=== PATIENT | male | born 1950 | race Caucasian/White ===

== ENCOUNTER 2016-11-30 12:28 | Inpatient (IN) | payer BC ==
[~2016-11-30] VITALS: Ht 177.8 cm; Wt 80.7 kg
[2016-11-30] VITALS (369 sets, daily range): BP systolic 88–118; BP diastolic 58–78; PULSE 102–105; TEMP 97.7–97.9; O2SAT 90–100
[~2016-11-30 12:28] MED LIST: CORTEF 20MG TAB20 MG PO; DEPO-TESTOS100 MG/ML IM; HYDROCORTISONE5 MG; LEVOXYL; TIROSINT150 MCG; ZESTRIL 10MG10 MG PO
[2016-11-30] MEDS ORDERED: LEVOXYL0.137 MG PO (13:10)
[2016-11-30 13:47] LABS: ARTERIAL BLD GAS O2 SATURATION 94.9 % (92-100); ARTERIAL BLD GAS TCO2 CT 12.5; ARTERIAL BLOOD GAS BASE EXCESS -13.9 (-2-2); ARTERIAL BLOOD GAS HCO3 11.7 meq/L (22-26); ARTERIAL BLOOD GAS PO2 81.6 mmHg (80-100); ARTERIAL BLOOD GAS pH 7.25 (7.35-7.45); OXYHEMOGLOBIN 94.1 %
[2016-11-30 13:48] LABS: ALLEN TEST YES; ALLENS TEST RESULT PASS; ATS? YES
[2016-11-30 14:21] LABS: BASO # 0.1 (0.0-0.2); BASO % 0.4 % (0.0-2.0); EOS # 0.2 (0.0-0.7); GRAN # 12.5 (1.4-6.5); GRAN % 77.5 % (42.2-75.2); HEMATOCRIT 40.1 % (42.0-52.0); HEMOGLOBIN 13.6 g/dl (13.5-18.0); LYMPH # 1.5 (1.2-3.4); LYMPH % 9.6 % (20.0-51.0); MEAN CELL VOLUME 90 fl (80.0-100.0); MEAN CORPUSCULAR HEMOGLOBIN 30 pg (27.0-31.0); MEAN CORPUSCULAR HGB CONC 34 g/dl (33.0-37.0); MEAN PLATELET VOLUME 9.7 fl (7.4-10.4); MONO # 1.8 (0.1-0.6); MONO % 10.9 % (1.7-9.3); PLATELET COUNT 286 K/mm3 (130-400); RED BLOOD COUNT 4.48 M/mm3 (4.20-5.60); REDCELL DISTRIBUTION WIDTH-CV 13.8 % (11.5-14.5); WHITE BLOOD COUNT 16.1 K/mm3 (4.8-10.8)
[2016-11-30 14:44] LABS: ADJUSTED CALCIUM 7.9 mg/dL (8.4-10.2); BILIRUBIN,TOTAL 1.9 mg/dL (0.0-1.0); CALCIUM 7.1 mg/dL (8.4-10.2); POTASSIUM 5.4 mmol/L (3.4-5.0)
[2016-11-30 14:49] LABS: CREATININE, serum 6.54 mg/dL (0.66-1.25)
[2016-11-30 20:30] LABS: HEMATOCRIT 37.4 % (42.0-52.0); HEMOGLOBIN 12.4 g/dl (13.5-18.0)
[2016-11-30 20:42] LABS: ANION GAP 19 mmol/L (7-16); BLOOD UREA NITROGEN 94 mg/dL (9-20); CALCIUM 6.8 mg/dL (8.4-10.2); CHLORIDE 108 mmol/L (98-107); GLUCOSE 83 mg/dL (74-106); POTASSIUM 4.9 mmol/L (3.4-5.0); SODIUM 140 mmol/L (137-145)
[2016-11-30 20:57] LABS: CREATININE, serum 6.21 mg/dL (0.66-1.25)
[2016-11-30 20:58] LABS: CARBON DIOXIDE 13 mmol/L (22-30); TROPONIN-I 0.198 ng/mL (0.000-0.034)
[2016-11-30 21:17] LABS: THYROID STIMULATING HORMONE < 0.015 uIU/mL (0.465-4.680)
[2016-11-30 22:07] LABS: PH 5 (5-8); SQUAMOUS EPITHELIAL 0-2 /hpf; URINE APPEARANCE Cloudy; URINE BACTERIA Rare /hpf; URINE BILIRUBIN Negative (NEGATIVE); URINE BLOOD 3+ (NEGATIVE); URINE COLOR Yellow; URINE GLUCOSE Negative (NEGATIVE); URINE KETONE Trace (NEGATIVE); URINE UROBILINOGEN Negative (NEGATIVE); URINE WBC 0-2 /hpf
[2016-11-30 23:22] LABS: MEAN CELL VOLUME 87 fl (80.0-100.0); MEAN CORPUSCULAR HGB CONC 35 g/dl (33.0-37.0); MEAN PLATELET VOLUME 9.9 fl (7.4-10.4); PLATELET COUNT 218 K/mm3 (130-400); RED BLOOD COUNT 3.76 M/mm3 (4.20-5.60); REDCELL DISTRIBUTION WIDTH-CV 13.7 % (11.5-14.5); WHITE BLOOD COUNT 12.6 K/mm3 (4.8-10.8)
[2016-11-30 23:30] LABS: ADD PATHOLOGY DIFF REVIEW NO; HEMATOCRIT 32.7 % (42.0-52.0); HEMOGLOBIN 11.5 g/dl (13.5-18.0); MEAN CORPUSCULAR HEMOGLOBIN 31 pg (27.0-31.0)
[2016-11-30 23:59] LABS: BAND 57 % (0-10); EOSINOPHIL 1 % (0-4); NEUTROPHILS 33 % (42.0-75.2); TOTAL CELLS COUNTED 100
[2016-12-01] VITALS (1297 sets, daily range): BP systolic 102–138; BP diastolic 56–77; PULSE 73–89; TEMP 97–98; O2SAT 78–100
[2016-12-01 02:04] LABS: HEMOGLOBIN 12.4 g/dl (13.5-18.0)
[2016-12-01 02:07] LABS: HEMATOCRIT 35.9 % (42.0-52.0)
[2016-12-01 02:15] LABS: CALCIUM 6.5 mg/dL (8.4-10.2); POTASSIUM 4.5 mmol/L (3.4-5.0)
[2016-12-01 02:27] LABS: CREATININE, serum 4.86 mg/dL (0.66-1.25)
[2016-12-01 05:35] LABS: MEAN CELL VOLUME 89 fl (80.0-100.0); MEAN CORPUSCULAR HEMOGLOBIN 30 pg (27.0-31.0); MEAN CORPUSCULAR HGB CONC 34 g/dl (33.0-37.0); MEAN PLATELET VOLUME 9.9 fl (7.4-10.4); PLATELET COUNT 225 K/mm3 (130-400); RED BLOOD COUNT 3.97 M/mm3 (4.20-5.60); REDCELL DISTRIBUTION WIDTH-CV 13.9 % (11.5-14.5); WHITE BLOOD COUNT 15.6 K/mm3 (4.8-10.8)
[2016-12-01 05:36] LABS: HEMATOCRIT 35.5 % (42.0-52.0)
[2016-12-01 05:37] LABS: ADD PATHOLOGY DIFF REVIEW NO
[2016-12-01 05:45] LABS: ALBUMIN 2.6 gm/dL (3.5-5.0); CALCIUM 6.7 mg/dL (8.4-10.2); PHOSPHOROUS 3.7 mg/dL (2.5-4.5); POTASSIUM 4.2 mmol/L (3.4-5.0)
[2016-12-01 05:50] LABS: BAND 57 % (0-10); NEUTROPHILS 34 % (42.0-75.2); TOTAL CELLS COUNTED 100
[2016-12-01 06:00] LABS: CREATININE, serum 4.55 mg/dL (0.66-1.25)
[2016-12-01 07:58] LABS: CREATININE, serum 4.55 mg/dL (0.66-1.25); FRACTIONAL EXCRETION OF NA+ 5.2 %
[2016-12-01 13:50] LABS: HEMATOCRIT 34.2 % (42.0-52.0); HEMOGLOBIN 11.9 g/dl (13.5-18.0)
[2016-12-01 14:05] LABS: CALCIUM 6.9 mg/dL (8.4-10.2); CREATININE, serum 3.8 mg/dL (0.66-1.25); POTASSIUM 3.5 mmol/L (3.4-5.0)
[2016-12-01] MEDS ORDERED: PRINIVIL10 MG PO (16:29)
[2016-12-01 16:55] LABS: MAGNESIUM 1.8 mg/dL (1.6-2.3)
[2016-12-01 19:49] LABS: HEMATOCRIT 34.9 % (42.0-52.0); HEMOGLOBIN 12.2 g/dl (13.5-18.0)
[2016-12-01 20:09] LABS: CALCIUM 7.1 mg/dL (8.4-10.2); CREATININE, serum 3.51 mg/dL (0.66-1.25); POTASSIUM 3.4 mmol/L (3.4-5.0)
[2016-12-02] VITALS (567 sets, daily range): BP systolic 115–141; BP diastolic 58–77; PULSE 65–92; TEMP 97–98.3; O2SAT 88–100
[2016-12-02 02:07] LABS: CREATININE, serum 3.09 mg/dL (0.66-1.25); POTASSIUM 3.2 mmol/L (3.4-5.0)
[2016-12-02 05:41] LABS: BASO % 0.2 % (0.0-2.0); GRAN # 15.1 (1.4-6.5); GRAN % 91.6 % (42.2-75.2); LYMPH # 0.5 (1.2-3.4); LYMPH % 2.9 % (20.0-51.0); MEAN CELL VOLUME 87 fl (80.0-100.0); MEAN CORPUSCULAR HGB CONC 35 g/dl (33.0-37.0); MEAN PLATELET VOLUME 10.4 fl (7.4-10.4); MONO # 0.8 (0.1-0.6); MONO % 4.9 % (1.7-9.3); PLATELET COUNT 228 K/mm3 (130-400); RED BLOOD COUNT 3.71 M/mm3 (4.20-5.60); REDCELL DISTRIBUTION WIDTH-CV 14.1 % (11.5-14.5); WHITE BLOOD COUNT 16.4 K/mm3 (4.8-10.8)
[2016-12-02 05:42] LABS: HEMATOCRIT 32.3 % (42.0-52.0); HEMOGLOBIN 11.2 g/dl (13.5-18.0); MEAN CORPUSCULAR HEMOGLOBIN 30 pg (27.0-31.0)
[2016-12-02 05:55] LABS: ALBUMIN 2.6 gm/dL (3.5-5.0); CREATININE, serum 2.73 mg/dL (0.66-1.25); PHOSPHOROUS 2.2 mg/dL (2.5-4.5); POTASSIUM 3.2 mmol/L (3.4-5.0)
[2016-12-03 02:45] VITALS: BP 134/66; PULSE 69; TEMP 98.8
[2016-12-03 06:55] LABS: BASO % 0.2 % (0.0-2.0); GRAN # 13.7 (1.4-6.5); GRAN % 88.2 % (42.2-75.2); LYMPH # 0.9 (1.2-3.4); LYMPH % 5.7 % (20.0-51.0); MEAN CELL VOLUME 88 fl (80.0-100.0); MEAN CORPUSCULAR HGB CONC 34 g/dl (33.0-37.0); MEAN PLATELET VOLUME 10.5 fl (7.4-10.4); MONO # 0.7 (0.1-0.6); MONO % 4.8 % (1.7-9.3); PLATELET COUNT 242 K/mm3 (130-400); RED BLOOD COUNT 3.58 M/mm3 (4.20-5.60); REDCELL DISTRIBUTION WIDTH-CV 14.6 % (11.5-14.5); WHITE BLOOD COUNT 15.5 K/mm3 (4.8-10.8)
[2016-12-03 06:59] LABS: HEMATOCRIT 31.4 % (42.0-52.0); HEMOGLOBIN 10.8 g/dl (13.5-18.0); MEAN CORPUSCULAR HEMOGLOBIN 30 pg (27.0-31.0)
[2016-12-03 07:09] LABS: ADJUSTED CALCIUM 8.3 mg/dL (8.4-10.2); ALBUMIN 2.6 gm/dL (3.5-5.0); BILIRUBIN,TOTAL 0.6 mg/dL (0.0-1.0); CALCIUM 7.2 mg/dL (8.4-10.2); CREATININE, serum 2.01 mg/dL (0.66-1.25); PHOSPHOROUS 1.6 mg/dL (2.5-4.5); POTASSIUM 3.3 mmol/L (3.4-5.0); TOTAL PROTEIN 5.4 gm/dL (6.4-8.2)
[2016-12-03 08:00] VITALS: BP 137/71; PULSE 68; TEMP 96.9
[2016-12-03 12:00] VITALS: BP 137/70; PULSE 64; TEMP 97
[2016-12-03 16:30] VITALS: BP 135/60; PULSE 66; TEMP 97.5
[2016-12-03 20:14] VITALS: BP 119/61; PULSE 60; TEMP 98.5
[2016-12-03 23:39] VITALS: BP 116/56; PULSE 55; TEMP 97.5
[2016-12-04 03:06] VITALS: BP 115/60; PULSE 60; TEMP 98
[2016-12-04 03:37] LABS: MEAN CELL VOLUME 89 fl (80.0-100.0); MEAN CORPUSCULAR HGB CONC 33 g/dl (33.0-37.0); MEAN PLATELET VOLUME 10.4 fl (7.4-10.4); PLATELET COUNT 234 K/mm3 (130-400); RED BLOOD COUNT 3.43 M/mm3 (4.20-5.60); REDCELL DISTRIBUTION WIDTH-CV 14.4 % (11.5-14.5)
[2016-12-04 03:41] LABS: HEMATOCRIT 30.5 % (42.0-52.0); HEMOGLOBIN 10.2 g/dl (13.5-18.0); MEAN CORPUSCULAR HEMOGLOBIN 30 pg (27.0-31.0)
[2016-12-04 03:42] LABS: ADD PATHOLOGY DIFF REVIEW NO
[2016-12-04 03:53] LABS: CALCIUM 7.1 mg/dL (8.4-10.2); CREATININE, serum 1.56 mg/dL (0.66-1.25); POTASSIUM 3.5 mmol/L (3.4-5.0)
[2016-12-04 05:05] LABS: BAND 20 % (0-10); METAMYELOCYTE 2 % (0-0); NEUTROPHILS 63 % (42.0-75.2); PLATELET ESTIMATE NORMAL (NORMAL); TOTAL CELLS COUNTED 100
[2016-12-04 08:17] VITALS: BP 129/64; PULSE 65; TEMP 97.8
[2016-12-04 11:30] VITALS: BP 133/70; PULSE 66; TEMP 97.5
[2016-12-04 16:13] VITALS: BP 129/69; PULSE 71; TEMP 97.5
[2016-12-04 19:05] VITALS: BP 138/68; PULSE 71; TEMP 98.4
[2016-12-04 23:14] VITALS: BP 116/62; PULSE 65; TEMP 97.7
[2016-12-05] VITALS (7 sets, daily range): BP systolic 125–150; BP diastolic 58–71; PULSE 61–76; TEMP 97.4–98.1
[2016-12-05 09:12] LABS: SODIUM 141 mmol/L (137-145)
[2016-12-05] MEDS ORDERED: CIPRO 500MG TA500 MG PO (14:00)
[2016-12-05] MEDS ORDERED: FLAGYL500 MG PO (14:00)
[2016-12-05] MEDS ORDERED: VITAMIN D31000 IU PO (14:01)
[2016-12-05] MEDS ORDERED: PROTONIX 40MG T40 MG PO (14:02)
[2016-12-05] MEDS ORDERED: TUMS ULTRA ST1000 MG PO (14:03)
[2016-12-05] MEDS ORDERED: FLONASE NASAL S16 GM NS (14:04)
[2016-12-05] MEDS ORDERED: LOPRESSOR 225 MG/TAB PO (14:05)
[2016-12-05] MEDS ORDERED: IPRATROPIUM BROM3 M1 IH (14:06)
[2016-12-05] MEDS ORDERED: ASPIRIN 81M81 MG/TA2 PO (14:07)
[2016-12-05 16:53] LABS: ADJUSTED CALCIUM 8.3 mg/dL (8.4-10.2); ALBUMIN 2.4 gm/dL (3.5-5.0); BILIRUBIN,TOTAL 0.5 mg/dL (0.0-1.0); CREATININE, serum 1.36 mg/dL (0.66-1.25); MAGNESIUM 1.8 mg/dL (1.6-2.3); PHOSPHOROUS 3.4 mg/dL (2.5-4.5); POTASSIUM 3.7 mmol/L (3.4-5.0); TOTAL PROTEIN 4.9 gm/dL (6.4-8.2)
[2016-12-05] MEDS ORDERED: PLAVIX 75MG TAB75 MG PO (22:20)
[2016-12-06 03:11] VITALS: BP 123/75; PULSE 58; TEMP 98.8
[2016-12-06 07:08] VITALS: BP 136/60; PULSE 61; TEMP 97.2
[2016-12-06] MEDS ORDERED: HEPARIN LOCK FLU5 M1 IV (08:40)
[2016-12-06] MEDS ORDERED: NS INT FLUSH 1010 ML IV (08:40)
[2016-12-06] MEDS ORDERED: ASPIRIN 81M81 MG/TA2 PO (08:49)
[2016-12-06] MEDS ORDERED: ZOFRAN ODT4 MG PO (09:13)
[2016-12-06 11:01] VITALS: BP 131/64; PULSE 65; TEMP 98
[2016-12-06 15:28] VITALS: BP 140/62; PULSE 66; TEMP 98
[2016-12-06] MEDS ORDERED: PROAIR HFA0.09 MG/AC IH (16:03)
[2016-12-06] MEDS ORDERED: FLAGYL500 MG PO (16:09)
[2016-12-06] MEDS ORDERED: CIPRO 500MG TA500 MG PO (16:09)
== END 2016-12-06 18:15 | disposition home health service (06) | DRG 377 ==
LOC: COL.ER 12:28 → ICU 16:30 → MEDICAL 12-02 17:53
PROVIDERS: Family Medicine; Internal Medicine; Internal Medicine Gastroenterology; Internal Medicine Nephrology; Nurse Practitioner Family
PROC: 0DB68ZX Excision of Stomach, Via Natural or Artificial Opening Endoscopic, Diagnostic (ICD-10-PCS; 2016-12-01)
PROC: 0DB98ZX Excision of Duodenum, Via Natural or Artificial Opening Endoscopic, Diagnostic (ICD-10-PCS; principal; 2016-12-01 09:00)
DX: K26.0 Acute duodenal ulcer with hemorrhage (principal); R57.1 Hypovolemic shock; N17.0 Acute kidney failure with tubular necrosis; I21.4 Non-ST elevation (NSTEMI) myocardial infarction; E27.3 Drug-induced adrenocortical insufficiency; E87.2 Acidosis; E44.0 Moderate protein-calorie malnutrition; E87.0 Hyperosmolality and hypernatremia; D62 Acute posthemorrhagic anemia; I47.2 Ventricular tachycardia; K21.0 Gastro-esophageal reflux disease with esophagitis; E89.3 Postprocedural hypopituitarism; I10 Essential (primary) hypertension; E87.5 Hyperkalemia; J20.9 Acute bronchitis, unspecified; E87.6 Hypokalemia
CPT/HCPCS: 99231-AI; 99232-AI; 99233-AI; 99239; C1751; C9113; J0744; J1644; J1720; J2250; J2405; J2543; J3010; J3480; J7030; J7050; J7070

== ENCOUNTER 2016-12-11 10:01 | Inpatient (IN) | payer BC, MEDICARE ==
[2016-12-11] VITALS (7 sets, daily range): BP systolic 118–131; BP diastolic 50–61; PULSE 59–65; TEMP 97.7–98.1
[~2016-12-11] VITALS: Ht 177.8 cm; Wt 78.3 kg
[~2016-12-11 10:01] MED LIST changes: +ASPIRIN 81M81 MG/TA2 PO; +CIPRO 500MG TA500 MG PO; +FLAGYL500 MG PO; +FLONASE NASAL S16 GM NS; +HEPARIN LOCK FLU5 M1 IV; +IPRATROPIUM BROM3 M1 IH; +LEVOXYL0.137 MG PO; +LOPRESSOR 225 MG/TAB PO; +NS INT FLUSH 1010 ML IV; +PLAVIX 75MG TAB75 MG PO; +PRINIVIL10 MG PO; +PROAIR HFA0.09 MG/AC IH; +PROTONIX 40MG T40 MG PO; +TUMS ULTRA ST1000 MG PO; +VITAMIN D31000 IU PO; +ZOFRAN ODT4 MG PO
[2016-12-11 15:14] LABS: MEAN CELL VOLUME 91 fl (80.0-100.0); MEAN CORPUSCULAR HGB CONC 34 g/dl (33.0-37.0); MEAN PLATELET VOLUME 10.5 fl (7.4-10.4); PLATELET COUNT 287 K/mm3 (130-400); RED BLOOD COUNT 2.57 M/mm3 (4.20-5.60); WHITE BLOOD COUNT 11.9 K/mm3 (4.8-10.8)
[2016-12-11 15:17] LABS: HEMATOCRIT 23.4 % (42.0-52.0); HEMOGLOBIN 7.9 g/dl (13.5-18.0); MEAN CORPUSCULAR HEMOGLOBIN 31 pg (27.0-31.0)
[2016-12-11 15:18] LABS: ADD PATHOLOGY DIFF REVIEW NO
[2016-12-11 15:20] LABS: ADJUSTED CALCIUM 8.3 mg/dL (8.4-10.2); ALBUMIN 2.2 gm/dL (3.5-5.0); BILIRUBIN,TOTAL 0.4 mg/dL (0.0-1.0); CALCIUM 6.9 mg/dL (8.4-10.2); CREATININE, serum 1.03 mg/dL (0.66-1.25); TOTAL PROTEIN 4.6 gm/dL (6.4-8.2)
[2016-12-11 15:31] LABS: BAND 5 % (0-10); EOSINOPHIL 2 % (0-4); NEUTROPHILS 85 % (42.0-75.2); PLATELET ESTIMATE NORMAL (NORMAL); TOTAL CELLS COUNTED 100
[2016-12-11 23:39] LABS: HEMATOCRIT 25.7 % (42.0-52.0); HEMOGLOBIN 8.7 g/dl (13.5-18.0)
[2016-12-12] VITALS (11 sets, daily range): BP systolic 89–152; BP diastolic 51–66; PULSE 58–100; TEMP 96.9–98.2
[2016-12-12 07:56] LABS: HEMATOCRIT 24.5 % (42.0-52.0); HEMOGLOBIN 8.3 g/dl (13.5-18.0)
[2016-12-12 08:12] LABS: CALCIUM 6.9 mg/dL (8.4-10.2); CREATININE, serum 0.92 mg/dL (0.66-1.25); MAGNESIUM 1.5 mg/dL (1.6-2.3); POTASSIUM 4.4 mmol/L (3.4-5.0)
[2016-12-12 18:03] LABS: HEMATOCRIT 22.8 % (42.0-52.0); HEMOGLOBIN 7.6 g/dl (13.5-18.0)
[2016-12-13 00:36] VITALS: BP 120/60; PULSE 60; TEMP 97.6
[2016-12-13 00:51] LABS: HEMATOCRIT 22.1 % (42.0-52.0); HEMOGLOBIN 7.4 g/dl (13.5-18.0)
[2016-12-13 04:56] VITALS: BP 123/62; PULSE 61; TEMP 97.9
[2016-12-13 06:21] LABS: BASO % 0.1 % (0.0-2.0); EOS % 0.1 % (0-4.0); GRAN # 6.3 (1.4-6.5); GRAN % 84.1 % (42.2-75.2); LYMPH # 0.8 (1.2-3.4); LYMPH % 10.1 % (20.0-51.0); MEAN CELL VOLUME 91 fl (80.0-100.0); MEAN CORPUSCULAR HGB CONC 33 g/dl (33.0-37.0); MEAN PLATELET VOLUME 10.7 fl (7.4-10.4); MONO # 0.3 (0.1-0.6); MONO % 4.5 % (1.7-9.3); PLATELET COUNT 273 K/mm3 (130-400); RED BLOOD COUNT 2.53 M/mm3 (4.20-5.60); REDCELL DISTRIBUTION WIDTH-CV 14.7 % (11.5-14.5); WHITE BLOOD COUNT 7.5 K/mm3 (4.8-10.8)
[2016-12-13 06:25] LABS: HEMOGLOBIN 7.6 g/dl (13.5-18.0); MEAN CORPUSCULAR HEMOGLOBIN 30 pg (27.0-31.0)
[2016-12-13 06:36] LABS: CALCIUM 6.8 mg/dL (8.4-10.2); CREATININE, serum 0.9 mg/dL (0.66-1.25); MAGNESIUM 2.2 mg/dL (1.6-2.3); POTASSIUM 3.8 mmol/L (3.4-5.0)
[2016-12-13 07:45] VITALS: BP 116/57; PULSE 66; TEMP 97.4
[2016-12-13 11:04] VITALS: BP 111/67; PULSE 59; TEMP 98.6
[2016-12-13 15:58] VITALS: BP 116/54; PULSE 60; TEMP 97.8
[2016-12-13 20:58] VITALS: BP 147/68; PULSE 62; TEMP 97.9
[2016-12-14] VITALS (15 sets, daily range): BP systolic 113–142; BP diastolic 55–77; PULSE 56–73; TEMP 97–98.7
[2016-12-14 07:31] LABS: MEAN CELL VOLUME 91 fl (80.0-100.0); MEAN CORPUSCULAR HGB CONC 34 g/dl (33.0-37.0); MEAN PLATELET VOLUME 10.9 fl (7.4-10.4); PLATELET COUNT 256 K/mm3 (130-400); RED BLOOD COUNT 2.25 M/mm3 (4.20-5.60); REDCELL DISTRIBUTION WIDTH-CV 15.1 % (11.5-14.5); WHITE BLOOD COUNT 6.6 K/mm3 (4.8-10.8)
[2016-12-14 07:38] LABS: ADD PATHOLOGY DIFF REVIEW NO; HEMATOCRIT 20.4 % (42.0-52.0); MEAN CORPUSCULAR HEMOGLOBIN 31 pg (27.0-31.0)
[2016-12-14 08:32] LABS: BAND 21 % (0-10); NEUTROPHILS 67 % (42.0-75.2); TOTAL CELLS COUNTED 100
[2016-12-14 08:33] LABS: PLATELET ESTIMATE NORMAL (NORMAL)
[2016-12-15 04:16] VITALS: BP 131/64; PULSE 58; TEMP 98.8
[2016-12-15 07:24] LABS: HEMOGLOBIN 8.8 g/dl (13.5-18.0)
[2016-12-15 08:36] VITALS: BP 147/58; PULSE 60; TEMP 97.8
[2016-12-15 12:43] VITALS: BP 134/66; PULSE 69; TEMP 98.4
[2016-12-15] MEDS ORDERED: FERROUS SU325 MG/TAB PO (14:11)
== END 2016-12-15 16:55 | disposition home health service (06) | DRG 378 ==
LOC: COL.ER 10:01 → MEDICAL 15:48
PROVIDERS: Emergency Medicine; Internal Medicine; Internal Medicine Gastroenterology; Nurse Practitioner Family; Physician Assistant
PROC: 02HV33Z Insertion of Infusion Device into Superior Vena Cava, Percutaneous Approach (ICD-10-PCS; 2016-12-11)
PROC: 0DJD8ZZ Inspection of Lower Intestinal Tract, Via Natural or Artificial Opening Endoscopic (ICD-10-PCS; 2016-12-12)
PROC: 0DJ08ZZ Inspection of Upper Intestinal Tract, Via Natural or Artificial Opening Endoscopic (ICD-10-PCS; principal; 2016-12-12 16:45)
DX: K26.4 Chronic or unspecified duodenal ulcer with hemorrhage (principal); D62 Acute posthemorrhagic anemia; E23.0 Hypopituitarism; E83.42 Hypomagnesemia
CPT/HCPCS: 99223-AI; 99232-AI; 99233-AI; 99238; C9113; J1644; J1720; J2250; J3010; J3475; J7030; P9016

== ENCOUNTER 2016-12-23 02:18 | Inpatient (IN) | payer BC, MEDICARE ==
[2016-12-23] VITALS (8 sets, daily range): BP systolic 86–98; BP diastolic 43–61; PULSE 54–86; TEMP 97.6–98.2
[~2016-12-23] VITALS: Ht 177.8 cm; Wt 72.8 kg
[~2016-12-23 02:18] MED LIST changes: +FERROUS SU325 MG/TAB PO
[2016-12-23 03:20] LABS: HEMOGLOBIN 12.3 g/dl (13.5-18.0); MEAN CELL VOLUME 88 fl (80.0-100.0); MEAN CORPUSCULAR HEMOGLOBIN 30 pg (27.0-31.0); MEAN CORPUSCULAR HGB CONC 34 g/dl (33.0-37.0); MEAN PLATELET VOLUME 9.6 fl (7.4-10.4); PLATELET COUNT 285 K/mm3 (130-400); RED BLOOD COUNT 4.08 M/mm3 (4.20-5.60); REDCELL DISTRIBUTION WIDTH-CV 14.7 % (11.5-14.5); WHITE BLOOD COUNT 6.9 K/mm3 (4.8-10.8)
[2016-12-23 03:34] LABS: ADJUSTED CALCIUM 8.7 mg/dL (8.4-10.2); ALBUMIN 3.1 gm/dL (3.5-5.0); BILIRUBIN,TOTAL 0.6 mg/dL (0.0-1.0); C-REACTIVE PROTEIN 7.4 mg/dL (0.0-0.9); CREATININE, serum 1.43 mg/dL (0.66-1.25); POTASSIUM 4.1 mmol/L (3.4-5.0); TOTAL PROTEIN 6.2 gm/dL (6.4-8.2)
[2016-12-23 03:46] LABS: ADD PATHOLOGY DIFF REVIEW NO; ERYTHROCYTE SEDIMENTATION RATE 25 mm/hr (0-30)
[2016-12-23 03:58] LABS: BAND 27 % (0-10); EOSINOPHIL 1 % (0-4); NEUTROPHILS 32 % (42.0-75.2); TOTAL CELLS COUNTED 100
[2016-12-23 18:15] LABS: PH 6 (5-8); SQUAMOUS EPITHELIAL None Seen /hpf; URINE APPEARANCE Clear; URINE BACTERIA None Seen /hpf; URINE BILIRUBIN Negative (NEGATIVE); URINE BLOOD Negative (NEGATIVE); URINE COLOR Yellow; URINE GLUCOSE Negative (NEGATIVE); URINE KETONE Negative (NEGATIVE); URINE RBC 0-2 /hpf; URINE UROBILINOGEN Negative (NEGATIVE); URINE WBC 0-2 /hpf
[2016-12-24 03:32] VITALS: BP 142/87; PULSE 75; TEMP 97.5
[2016-12-24 03:40] VITALS: BP 104/58; PULSE 58; TEMP 97.8
[2016-12-24 07:42] VITALS: BP 97/59; PULSE 59; TEMP 97.8
[2016-12-24 12:13] VITALS: BP 97/51; PULSE 63; TEMP 98.4
[2016-12-24 15:05] VITALS: BP 109/55; PULSE 63; TEMP 98.1
[2016-12-24 17:09] LABS: MEAN CELL VOLUME 90 fl (80.0-100.0); MEAN CORPUSCULAR HGB CONC 33 g/dl (33.0-37.0); MEAN PLATELET VOLUME 9.9 fl (7.4-10.4); PLATELET COUNT 244 K/mm3 (130-400); RED BLOOD COUNT 3.29 M/mm3 (4.20-5.60); WHITE BLOOD COUNT 4.3 K/mm3 (4.8-10.8)
[2016-12-24 17:12] LABS: HEMATOCRIT 29.6 % (42.0-52.0); HEMOGLOBIN 9.7 g/dl (13.5-18.0); MEAN CORPUSCULAR HEMOGLOBIN 29 pg (27.0-31.0)
[2016-12-24 17:13] LABS: ADD PATHOLOGY DIFF REVIEW NO; CALCIUM 6.4 mg/dL (8.4-10.2); CREATININE, serum 0.91 mg/dL (0.66-1.25); POTASSIUM 3.3 mmol/L (3.4-5.0)
[2016-12-24 18:24] LABS: ANISOCYTOSIS 1+; BAND 23 % (0-10); NEUTROPHILS 66 % (42.0-75.2); PLATELET ESTIMATE NORMAL (NORMAL); TOTAL CELLS COUNTED 100
[2016-12-24 19:50] VITALS: BP 112/64; PULSE 62; TEMP 98.6
[2016-12-25 00:48] VITALS: BP 117/69; PULSE 59; TEMP 97.5
[2016-12-25 04:30] VITALS: BP 113/63; PULSE 60; TEMP 97.4
[2016-12-25 07:52] LABS: INR 1.2 (0.8-3.0); PROTHROMBIN TIME 13.5 SECONDS (9.7-12.8)
[2016-12-25 07:55] LABS: HEMOGLOBIN 9.1 g/dl (13.5-18.0); MEAN CELL VOLUME 89 fl (80.0-100.0); MEAN CORPUSCULAR HEMOGLOBIN 30 pg (27.0-31.0); MEAN CORPUSCULAR HGB CONC 34 g/dl (33.0-37.0); MEAN PLATELET VOLUME 9.9 fl (7.4-10.4); PLATELET COUNT 243 K/mm3 (130-400); RED BLOOD COUNT 3.05 M/mm3 (4.20-5.60); REDCELL DISTRIBUTION WIDTH-CV 15.2 % (11.5-14.5); WHITE BLOOD COUNT 4.7 K/mm3 (4.8-10.8)
[2016-12-25 07:57] LABS: ADD PATHOLOGY DIFF REVIEW NO; HEMATOCRIT 27.1 % (42.0-52.0)
[2016-12-25 08:06] LABS: ADJUSTED CALCIUM 7.5 mg/dL (8.4-10.2); ALBUMIN 2.1 gm/dL (3.5-5.0); BILIRUBIN,TOTAL 0.2 mg/dL (0.0-1.0); CREATININE, serum 0.84 mg/dL (0.66-1.25); POTASSIUM 3.3 mmol/L (3.4-5.0); TOTAL PROTEIN 4.5 gm/dL (6.4-8.2)
[2016-12-25 08:09] VITALS: BP 115/69; PULSE 65; TEMP 98.4
[2016-12-25 11:00] VITALS: BP 112/69; PULSE 69; TEMP 97.9
[2016-12-25 13:56] LABS: BAND 23 % (0-10); EOSINOPHIL 1 % (0-4); NEUTROPHILS 65 % (42.0-75.2); PLATELET ESTIMATE NORMAL (NORMAL); TOTAL CELLS COUNTED 100
[2016-12-25 16:14] VITALS: BP 125/63; PULSE 72; TEMP 97.4
[2016-12-25 19:31] VITALS: BP 125/63; PULSE 69; TEMP 97.9
[2016-12-26] VITALS (7 sets, daily range): BP systolic 123–143; BP diastolic 68–74; PULSE 64–79; TEMP 96.8–98.2
[2016-12-26 16:39] LABS: MEAN CELL VOLUME 89 fl (80.0-100.0); MEAN CORPUSCULAR HGB CONC 33 g/dl (33.0-37.0); MEAN PLATELET VOLUME 9.6 fl (7.4-10.4); PLATELET COUNT 281 K/mm3 (130-400); RED BLOOD COUNT 3.23 M/mm3 (4.20-5.60); REDCELL DISTRIBUTION WIDTH-CV 15.7 % (11.5-14.5); WHITE BLOOD COUNT 5.5 K/mm3 (4.8-10.8)
[2016-12-26 16:45] LABS: ADD PATHOLOGY DIFF REVIEW NO; HEMATOCRIT 28.7 % (42.0-52.0); HEMOGLOBIN 9.6 g/dl (13.5-18.0); MEAN CORPUSCULAR HEMOGLOBIN 30 pg (27.0-31.0)
[2016-12-26 17:10] LABS: ADJUSTED CALCIUM 7.4 mg/dL (8.4-10.2); ALBUMIN 2.2 gm/dL (3.5-5.0); BILIRUBIN,TOTAL 0.2 mg/dL (0.0-1.0); CREATININE, serum 0.88 mg/dL (0.66-1.25); POTASSIUM 3.4 mmol/L (3.4-5.0); TOTAL PROTEIN 4.6 gm/dL (6.4-8.2)
[2016-12-26 17:30] LABS: BAND 6 % (0-10); METAMYELOCYTE 1 % (0-0); NEUTROPHILS 79 % (42.0-75.2); TOTAL CELLS COUNTED 100
[2016-12-26 17:31] LABS: ANISOCYTOSIS 1+; HYPOCHROMIA 1+
[2016-12-26 17:32] LABS: BURR CELLS 1+; PLATELET ESTIMATE NORMAL (NORMAL); ROULEAUX 1+
[2016-12-26 17:33] LABS: MICROCYTOSIS 2+
[2016-12-27 03:32] VITALS: BP 124/70; PULSE 70; TEMP 97.5
[2016-12-27 07:44] VITALS: BP 135/72; PULSE 76; TEMP 98.1
[2016-12-27 10:22] LABS: CREATININE, serum 0.9 mg/dL (0.66-1.25); MAGNESIUM 1.2 mg/dL (1.6-2.3); POTASSIUM 3.6 mmol/L (3.4-5.0)
[2016-12-27 12:25] VITALS: BP 140/90; PULSE 69; TEMP 98.1
[2016-12-27 15:51] VITALS: BP 133/69; PULSE 72; TEMP 97.8
[2016-12-27 22:30] VITALS: BP 137/51; PULSE 71; TEMP 98
[2016-12-28 07:16] LABS: MEAN CELL VOLUME 89 fl (80.0-100.0); MEAN CORPUSCULAR HGB CONC 33 g/dl (33.0-37.0); MEAN PLATELET VOLUME 9.6 fl (7.4-10.4); PLATELET COUNT 280 K/mm3 (130-400); RED BLOOD COUNT 2.96 M/mm3 (4.20-5.60); REDCELL DISTRIBUTION WIDTH-CV 15.8 % (11.5-14.5); WHITE BLOOD COUNT 5.2 K/mm3 (4.8-10.8)
[2016-12-28 07:23] LABS: HEMATOCRIT 26.3 % (42.0-52.0); HEMOGLOBIN 8.7 g/dl (13.5-18.0); MEAN CORPUSCULAR HEMOGLOBIN 29 pg (27.0-31.0)
[2016-12-28 07:33] LABS: ADJUSTED CALCIUM 7.5 mg/dL (8.4-10.2); ALBUMIN 1.9 gm/dL (3.5-5.0); BILIRUBIN,TOTAL 0.2 mg/dL (0.0-1.0); CREATININE, serum 0.93 mg/dL (0.66-1.25); POTASSIUM 3.7 mmol/L (3.4-5.0); TOTAL PROTEIN 3.9 gm/dL (6.4-8.2)
[2016-12-28 07:39] LABS: CALCIUM 5.8 mg/dL (8.4-10.2)
[2016-12-28 09:24] LABS: BAND 20 % (0-10); NEUTROPHILS 64 % (42.0-75.2); TOTAL CELLS COUNTED 100
[2016-12-28 09:25] LABS: PLATELET ESTIMATE NORMAL (NORMAL); POLYCHROMASIA 1+
[2016-12-28 09:26] LABS: ADD PATHOLOGY DIFF REVIEW YES
[2016-12-28 09:28] LABS: HYPOCHROMIA 1+
[2016-12-28] MEDS ORDERED: LEVAQUIN 750MG750 M1 PO (12:52)
[2016-12-28] MEDS ORDERED: FLAGYL500 MG PO (12:52)
[2016-12-28] MEDS ORDERED: IMODIUM A-D2 MG PO (12:56)
[2016-12-29 08:24] LABS: PATHOLOGY DIFF REVIEW OK +
== END 2016-12-28 16:55 | disposition home or self-care (01) | DRG 391 ==
LOC: COL.ER 02:18 → MEDICAL 04:44
PROVIDERS: Emergency Medicine; Internal Medicine; Nurse Practitioner Family
DX: A09 Infectious gastroenteritis and colitis, unspecified (principal); I21.4 Non-ST elevation (NSTEMI) myocardial infarction; D62 Acute posthemorrhagic anemia; E27.40 Unspecified adrenocortical insufficiency; N17.9 Acute kidney failure, unspecified; I10 Essential (primary) hypertension; E86.0 Dehydration
CPT/HCPCS: 99232-AI; 99233-AI; 99239; A9585; C9113; G0378; G8978-GP; G8979-GP; J1170; J1720; J1956; J2405; J3475; J3480; J7030

== ENCOUNTER → 2017-01-05 | Outpatient (CLI) | payer BC, MEDICARE ==
[~2017-01-05] MED LIST changes: +IMODIUM A-D2 MG PO; +LEVAQUIN 750MG750 M1 PO
== END ==
LOC: COL.RAD 11:00
DX: K21.9 Gastro-esophageal reflux disease without esophagitis (principal); K44.9 Diaphragmatic hernia without obstruction or gangrene; K22.8 Other specified diseases of esophagus

== ENCOUNTER 2017-10-28 15:25 | Emergency (ER) | payer BC ==
[~2017-10-28] VITALS: Ht 177.8 cm; Wt 80.0 kg
[2017-10-28 15:27] VITALS: BP 181/81; PULSE 60; TEMP 98
[2017-10-28 16:07] LABS: BASO # 0.1 (0.0-0.2); BASO % 0.6 % (0.0-2.0); EOS # 0.1 (0.0-0.7); EOS % 0.9 % (0-4.0); GRAN # 5.6 (1.4-6.5); GRAN % 65.8 % (42.2-75.2); HEMATOCRIT 36.3 % (42.0-52.0); HEMOGLOBIN 12.5 g/dl (13.5-18.0); LYMPH # 2.3 (1.2-3.4); LYMPH % 26.6 % (20.0-51.0); MEAN CELL VOLUME 91 fl (80.0-100.0); MEAN CORPUSCULAR HEMOGLOBIN 31 pg (27.0-31.0); MEAN CORPUSCULAR HGB CONC 34 g/dl (33.0-37.0); MEAN PLATELET VOLUME 9.7 fl (7.4-10.4); MONO # 0.5 (0.1-0.6); MONO % 5.9 % (1.7-9.3); PLATELET COUNT 251 K/mm3 (130-400); RED BLOOD COUNT 3.99 M/mm3 (4.20-5.60); REDCELL DISTRIBUTION WIDTH-CV 12.5 % (11.5-14.5)
[2017-10-28 16:17] LABS: ALBUMIN 3.9 gm/dL (3.5-5.0); BILIRUBIN,TOTAL 0.8 mg/dL (0.0-1.0); CALCIUM 8.8 mg/dL (8.4-10.2); CREATININE, serum 0.99 mg/dL (0.66-1.25); POTASSIUM 4.9 mmol/L (3.4-5.0); TOTAL PROTEIN 6.9 gm/dL (6.4-8.2); URIC ACID 6.9 mg/dL (3.5-8.5)
== END 2017-10-28 16:40 | disposition home or self-care (01) ==
LOC: COL.ER 15:25
PROVIDERS: Family Medicine
DX: R60.0 Localized edema (principal); Z86.39 Personal history of other endocrine, nutritional and metabolic disease; Z79.52 Long term (current) use of systemic steroids

== ENCOUNTER 2018-04-06 15:24 | Emergency (ER) | payer BC ==
[~2018-04-06] VITALS: Ht 177.8 cm; Wt 81.4 kg
[2018-04-06 15:29] VITALS: BP 156/77; PULSE 63; TEMP 98.8
[2018-04-06] MEDS ORDERED: CEPHALEXIN500 M1 PO (15:42)
== END 2018-04-06 15:52 | disposition home or self-care (01) ==
LOC: COL.ER 15:24
DX: S51.802A Unspecified open wound of left forearm, initial encounter (principal); E03.9 Hypothyroidism, unspecified; K21.9 Gastro-esophageal reflux disease without esophagitis; Z90.89 Acquired absence of other organs; X58.XXXA Exposure to other specified factors, initial encounter

== ENCOUNTER 2018-04-12 17:26 | Emergency (ER) | payer BC ==
[~2018-04-12] VITALS: Ht 177.8 cm; Wt 81.4 kg
[~2018-04-12 17:26] MED LIST changes: +CEPHALEXIN500 M1 PO
[2018-04-12 17:35] VITALS: TEMP 99.2
[2018-04-12 18:42] LABS: BASO % 0.4 % (0.0-2.0); EOS # 0.1 (0.0-0.7); EOS % 1.6 % (0-4.0); GRAN # 4.4 (1.4-6.5); GRAN % 53.5 % (42.2-75.2); HEMATOCRIT 39.5 % (42.0-52.0); HEMOGLOBIN 13.4 g/dl (13.5-18.0); LYMPH # 2.7 (1.2-3.4); LYMPH % 32.7 % (20.0-51.0); MEAN CELL VOLUME 92 fl (80.0-100.0); MEAN CORPUSCULAR HEMOGLOBIN 31 pg (27.0-31.0); MEAN CORPUSCULAR HGB CONC 34 g/dl (33.0-37.0); MEAN PLATELET VOLUME 9.7 fl (7.4-10.4); MONO # 0.9 (0.1-0.6); MONO % 11.4 % (1.7-9.3); PLATELET COUNT 210 K/mm3 (130-400); REDCELL DISTRIBUTION WIDTH-CV 13.2 % (11.5-14.5)
[2018-04-12 18:56] LABS: ALBUMIN 3.7 gm/dL (3.5-5.0); BILIRUBIN,TOTAL 0.7 mg/dL (0.0-1.0); C-REACTIVE PROTEIN 0.8 mg/dL (0.0-0.9); CALCIUM 7.9 mg/dL (8.4-10.2); CREATININE, serum 0.94 mg/dL (0.66-1.25); POTASSIUM 4.4 mmol/L (3.4-5.0); TOTAL PROTEIN 6.4 gm/dL (6.4-8.2)
[2018-04-12 19:23] LABS: ERYTHROCYTE SEDIMENTATION RATE 9 mm/hr (0-30)
[2018-04-12] MEDS ORDERED: BACTRIM DS 8001 TAB PO (19:28)
[2018-04-12 19:52] VITALS: BP 170/92; PULSE 61
== END 2018-04-12 19:56 | disposition home or self-care (01) ==
LOC: COL.ER 17:26
PROVIDERS: Emergency Medicine
DX: L03.114 Cellulitis of left upper limb (principal); R23.4 Changes in skin texture; I10 Essential (primary) hypertension; K50.90 Crohn's disease, unspecified, without complications

== ENCOUNTER 2019-12-03 19:23 | Emergency (ER) | payer MEDICARE ==
[~2019-12-03] VITALS: Ht 177.8 cm; Wt 77.3 kg
[~2019-12-03 19:23] MED LIST changes: +BACTRIM DS 8001 TAB PO
[2019-12-03 19:44] VITALS: BP 160/91; TEMP 97.6
[2019-12-03 22:17] VITALS: PULSE 60
== END 2019-12-03 22:17 | disposition home or self-care (01) ==
LOC: COL.ER 19:23
DX: H10.9 Unspecified conjunctivitis (principal); Z98.890 Other specified postprocedural states

== ENCOUNTER → 2020-12-04 | Outpatient (CLI) | payer MEDICARE, BC | LOC: ZCOL.LAB 15:56 | DX: L90.5 Scar conditions and fibrosis of skin (principal) ==

== ENCOUNTER 2021-02-27 18:08 | Emergency (ER) | payer MEDICARE, BC ==
[~2021-02-27] VITALS: Ht 177.8 cm; Wt 83.6 kg
[2021-02-27 18:13] VITALS: TEMP 97.8
[2021-02-27 18:52] VITALS: BP 165/99; PULSE 60
== END 2021-02-27 18:55 | disposition home or self-care (01) ==
LOC: COL.ER 18:08
DX: S83.92XA Sprain of unspecified site of left knee, initial encounter (principal); W01.0XXA Fall on same level from slipping, tripping and stumbling without subsequent striking against object, initial encounter; Y93.01 Activity, walking, marching and hiking

== ENCOUNTER → 2021-08-31 | Outpatient (CLI) | payer MEDICARE, BC | LOC: COL.RAD 08-20 12:30 | DX: D35.2 Benign neoplasm of pituitary gland (principal); D35.3 Benign neoplasm of craniopharyngeal duct; E03.8 Other specified hypothyroidism; E23.0 Hypopituitarism; E27.49 Other adrenocortical insufficiency; I10 Essential (primary) hypertension; G93.89 Other specified disorders of brain; Z98.890 Other specified postprocedural states | CPT/HCPCS: A9575 ==

== ENCOUNTER 2023-06-02 17:35 | Emergency (ER) | payer MEDICARE, BC ==
[~2023-06-02] VITALS: Ht 154.9 cm; Wt 81.8 kg
[~2023-06-02 17:35] MED LIST changes: +APRISO0.375 GM PO; +HUMIRA(CF)40 MG/0.4 SQ; +LEXAPRO 10MG10 MG PO; +LIPITOR 80MG80 MG PO; +MYRBETR25MG PO; +PROSCAR 5MG5 MG PO; +PROTONIX20 MG PO
[2023-06-02 17:40] VITALS: TEMP 97.8
[2023-06-02 17:54] LABS: BASO % 0.4 % (0.0-2.0); EOS # 0.1 K/mm3 (0.0-0.7); EOS % 0.6 % (0.0-4.0); GRAN # 5.8 K/mm3 (1.4-6.5); GRAN % 58.8 % (42.2-75.2); HEMATOCRIT 41.5 % (42.0-52.0); HEMOGLOBIN 13.9 g/dl (13.5-18.0); LYMPH # 2.9 K/mm3 (1.2-3.4); LYMPH % 29.9 % (20.0-51.0); MEAN CELL VOLUME 92 fl (80.0-100.0); MEAN CORPUSCULAR HEMOGLOBIN 31 pg (27-31); MEAN CORPUSCULAR HGB CONC 34 g/dl (33.0-37.0); MEAN PLATELET VOLUME 9.6 fl (7.4-10.4); MONO % 10.1 % (1.7-9.3); PLATELET COUNT 284 K/mm3 (130-400); RED BLOOD COUNT 4.51 M/mm3 (4.20-5.60); REDCELL DISTRIBUTION WIDTH-CV 12.7 % (11.5-14.5)
[2023-06-02 18:15] LABS: ALANINE AMINOTRANSFERASE 71 U/L (0-55); ALKALINE PHOSPHATASE 208 U/L (40-150); ANION GAP 10 mmol/L (7-16); AST,SGOT 51 U/L (5-34); BILIRUBIN,TOTAL 0.7 mg/dL (0.2-1.2); BLOOD UREA NITROGEN 21 mg/dL (8-26); CALCIUM 8.8 mg/dL (8.4-10.2); CARBON DIOXIDE 24 mmol/L (23-31); CHLORIDE 107 mmol/L (98-107); CREATINE KINASE 145 U/L (30-200); CREATININE, serum 0.85 mg/dL (0.72-1.25); GLUCOSE 99 mg/dL (70-99); LIPASE 18 U/L (8-78); POTASSIUM 4.4 mmol/L (3.5-4.5); SODIUM 141 mmol/L (136-145); TOTAL PROTEIN 7.5 gm/dL (6.2-8.1)
[2023-06-02 18:25] LABS: TROPONIN-I < 0.010 ng/mL (0.00-0.033)
[2023-06-02 18:32] LABS: PROTHROMBIN TIME 11.4 SECONDS (9.7-12.8)
[2023-06-02 18:51] LABS: D-DIMER < 200.00 ng/mLDDu (200-230)
[2023-06-02 21:23] VITALS: BP 176/87; PULSE 62
== END 2023-06-02 21:24 | disposition home or self-care (01) ==
LOC: COL.ER 17:35
PROVIDERS: Emergency Medicine
DX: R07.9 Chest pain, unspecified (principal); R79.89 Other specified abnormal findings of blood chemistry